=== PATIENT | male | born 1960 | race Caucasian/White ===

== ENCOUNTER 2017-08-20 11:59 | Emergency (ER) | payer SELFPAY ==
[~2017-08-20] VITALS: Ht 190.5 cm; Wt 119.3 kg
[~2017-08-20 11:59] MED LIST: BACTRIM,SEPT1 TABLET PO; DARVOCET-N 1001 EACH PO; EFFEXOR XR75 MG PO; Ecotrin PO; LEXAPRO10 MG PO; MOTRIN800 MG PO; NEURONTIN300 MG PO; NORCO 5/3251 TABLET PO; PREVACID30 MG PO; SKELAXIN800 MG PO; TRAZODONE HCL50 MG PO; VALIUM5 MG PO
[2017-08-20 14:04] LABS: HEMATOCRIT 38.4 % (38.0-50.0); MCH 33.8 PG (29.0-34.0); MCHC 34.6 G/DL (30.0-36.0); MCV 97.5 FL (86-99); MEAN PLAT.VOLUME 8.8 uM^3 (9.0-12.4); PLATELET COUNT 127 K/uL (156-360); RBC DIS.WIDTH-CV 13.8 % (11.8-14.6); RBC DIS.WIDTH-SD 48.8 % (39-53); RED BLOOD COUNT 3.94 M/uL (4.00-5.50); WHITE BLOOD COUNT 4.7 K/uL (4.1-10.2)
[2017-08-20 14:14] LABS: CHLORIDE 108 mEq/L (99-109); POTASSIUM 4.5 mEq/L (3.7-5.4); SODIUM 141 mEq/L (136-147)
[2017-08-20 14:16] LABS: GLUCOSE 106 mg/dL (70-99)
[2017-08-20 14:17] LABS: ANION GAP 5 MEQ/L (2-14)
[2017-08-20 14:20] LABS: GFR ESTIMATE (CALCULATED) > 59 mL/min/
[2017-08-20 14:21] LABS: UREA NITROGEN (BUN) 21 mg/dL (9-23)
[2017-08-20 14:28] LABS: TROP-I INTERPRETATION NEGATIVE; TROPONIN-I < 0.01 ng/mL (0.0-0.30)
[2017-08-20] MEDS ORDERED: NORCO 5/3251 TABLET PO (15:34)
[2017-08-20 15:57] VITALS: BP 148/76
== END 2017-08-20 16:01 | disposition home or self-care (01) ==
LOC: EME 11:59
PROVIDERS: Physician Assistant
DX: R20.2 Paresthesia of skin (principal); Z86.718 Personal history of other venous thrombosis and embolism
CPT/HCPCS: 72125; 80048; 84484; 85027; 93005; 99281; 99283; J3010